=== PATIENT | female | born 1990 | race Caucasian/White ===

== ENCOUNTER 2018-05-17 18:53 | Emergency (ER) | payer MEDICAID ==
[~2018-05-17] VITALS: Ht 160 cm; Wt 74.8 kg
[2018-05-17 19:08] VITALS: BP_SYST 121
--- NOTE | 2018-05-17 19:08 | NUR ---
Pt placed to ER bed 08, report given to DENEEN Neil.
--- NOTE | 2018-05-17 19:10 | NUR ---
Patient AAOx4, ambulatory. Patient states having a main complaint of an "anxiety episode" with chest tightness since earlier today. Patient denies pain, dizziness, and shortness of breath at this time. Patient states having Hx of anxiety and that "sometimes I feel like this when I'm anxious". Patient denies suicidal ideation. Patient denies any other complaints.
--- NOTE | 2018-05-17 19:31 | NUR ---
Dr. Willard at bedside.
[2018-05-17 20:03] VITALS: BP_SYST 119
--- NOTE | 2018-05-17 20:03 | NUR ---
Patient given written and verbal discharge instructions and verbalizes understanding. ER MD discussed with patient the results and treatment provided. Patient in stable condition. ID arm band removed. Rx of xanax given. Patient educated on pain management and to follow up with PMD. Pain Scale 0/10. Opportunity for questions provided and answered. Medication side effect fact sheet provided.
== END 2018-05-17 20:03 | disposition home or self-care (01) ==
LOC: SED 18:53
DX: F41.9 Anxiety disorder, unspecified (principal); R03.0 Elevated blood-pressure reading, without diagnosis of hypertension
CPT/HCPCS: 99283; 99284